=== PATIENT | female | born 1970 | race Caucasian/White ===

== ENCOUNTER → 2017-02-02 | Outpatient (CLI) | payer BC ==
[~2017-02-02] MED LIST: ALPR-411 PO; ASPI81TA28 PO; ATOR-22 PO; BIOT1TAB5 PO; CALC500C70 PO; CLID5CAP PO; LORA10CA2 PO; OMEP40CA PO; PENI250T3 PO; SUMA50TA15 PO; VITA100C4 PO
== END | disposition home or self-care (01) ==
LOC: C.MAMM 13:18
PROVIDERS: ATTEND Nurse Practitioner Family
DX: Z85.3 Personal history of malignant neoplasm of breast (principal)